=== PATIENT | female | born 1955 | race Caucasian/White ===

== ENCOUNTER → 2018-03-02 | Outpatient (CLI) | payer BC | LOC: MC.RAD 07:38 | DX: Z12.31 Encounter for screening mammogram for malignant neoplasm of breast (principal) ==

== ENCOUNTER 2021-02-20 15:32 | Observation (INO) | payer BC ==
[~2021-02-20] VITALS: Ht 170.2 cm; Wt 63.6 kg
[2021-02-20 16:36] LABS: BASO % 0.7 % (0.0-2.0); GRAN # 3.6 (1.4-6.5); GRAN % 80.1 % (42.2-75.2); HEMATOCRIT 37.9 % (37.0-47.0); HEMOGLOBIN 13.1 g/dl (12.5-16.0); LYMPH # 0.4 (1.2-3.4); LYMPH % 9.2 % (20.0-51.0); MEAN CELL VOLUME 102 fl (80.0-100.0); MEAN CORPUSCULAR HEMOGLOBIN 35 pg (27.0-31.0); MEAN CORPUSCULAR HGB CONC 35 g/dl (33.0-37.0); MEAN PLATELET VOLUME 12.7 fl (7.4-10.4); MONO # 0.4 (0.1-0.6); MONO % 9.6 % (1.7-9.3); RED BLOOD COUNT 3.73 M/mm3 (4.10-5.30); REDCELL DISTRIBUTION WIDTH-CV 15.4 % (11.5-14.5)
[2021-02-20 16:43] LABS: INR 1.9 (0.8-3.0); PROTHROMBIN TIME 21.7 SECONDS (9.7-12.8)
[2021-02-20 16:46] LABS: ALBUMIN 3.3 gm/dL (3.5-5.0); BILIRUBIN,TOTAL 5.3 mg/dL (0.0-1.0); CALCIUM 7.8 mg/dL (8.4-10.2); CREATININE, serum 0.31 (0.52-1.25); POTASSIUM 3.4 mmol/L (3.4-5.0); TOTAL PROTEIN 7.6 gm/dL (6.4-8.2)
[2021-02-20 17:19] LABS: PLATELET COUNT 37 K/mm3 (130-400)
[2021-02-20] MEDS ORDERED: SOOLANTRA TOP (17:24)
[2021-02-20] MEDS ORDERED: K-DUR20 MEQ PO (17:25)
[2021-02-20] MEDS ORDERED: CEPHALEXIN500 M1 PO (17:33)
[2021-02-21] VITALS (7 sets, daily range): BP systolic 115–138; BP diastolic 63–87; PULSE 100–111; TEMP 98.2–99.5
--- NOTE | 2021-02-21 02:54 | NUR ---
Patient arrived medical floor room 357 from ER around 23:30 pm. Patient A/Ox4. Patient reports lots of pressure to her abdomen. Abdomen firm and distended. Patient denies N/V or diarrhea at this time. Denies chest pain or SOB. Patient reports she feels nauseous on and off at home. Right lower leg has +2 pitting edema. Oriented patient to the room. Meds given per AUG. Call light in reach. Will continue to monitor.
[2021-02-21] MEDS ORDERED: DOXYCYCLINE 10100 MG PO (04:15)
[2021-02-21 07:24] LABS: EOS % 0.3 % (0-4.0); GRAN # 2.6 (1.4-6.5); GRAN % 64.9 % (42.2-75.2); HEMOGLOBIN 12.9 g/dl (12.5-16.0); LYMPH # 0.8 (1.2-3.4); LYMPH % 20.9 % (20.0-51.0); MEAN CELL VOLUME 100 fl (80.0-100.0); MEAN CORPUSCULAR HEMOGLOBIN 36 pg (27.0-31.0); MEAN CORPUSCULAR HGB CONC 36 g/dl (33.0-37.0); MEAN PLATELET VOLUME 13.8 fl (7.4-10.4); MONO # 0.5 (0.1-0.6); MONO % 12.6 % (1.7-9.3); RED BLOOD COUNT 3.61 M/mm3 (4.10-5.30); REDCELL DISTRIBUTION WIDTH-CV 14.7 % (11.5-14.5)
[2021-02-21 07:27] LABS: HEMATOCRIT 36.2 % (37.0-47.0)
[2021-02-21 07:30] LABS: PLATELET COUNT 34 K/mm3 (130-400)
--- NOTE | 2021-02-21 07:30 | NUR ---
Report with ISRAEL Rodríguez. Pt up and in the bathroom at this time, denies needs. Call light in reach.
[2021-02-21 07:48] LABS: ALBUMIN 2.8 gm/dL (3.5-5.0); BILIRUBIN,TOTAL 5.3 mg/dL (0.0-1.0); CALCIUM 7.8 mg/dL (8.4-10.2); CREATININE, serum 0.27 (0.52-1.25); POTASSIUM 3.4 mmol/L (3.4-5.0)
--- NOTE | 2021-02-21 08:50 | NUR ---
Assessment complete. Pt resting in bed, A&O x 4, reports pain/pressure to upper abd 5 out of 10 on pain scale. Saline lock IV to left forearm without s/s of complications. Abd distended and firm. POC for procedure reviewed with pt and she verbalizes understanding. Pt reports having a couple loose stools with some blood tinge. Provider notified. No further needs reported. Call light in reach.
--- NOTE | 2021-02-21 09:00 | NUR ---
Pt to US for procedure via WC.
--- NOTE | 2021-02-21 10:30 | NUR ---
Pt back to room following procedure, A&O x 4, denies c/o or needs. Call light in reach.
--- NOTE | 2021-02-21 11:30 | NUR ---
SW met with the patient to discuss discharge plan. The patient lives in [place] with her , Italo ([id number]#[phone]). She reports independence with ADLs and has a cane available, if needed. The patient's PCP is Dr. Krsitie King and she receives her medications from [facility]. She reports no difficulties obtaining her meds. The patient does not have a DPOA-HC in EMR, but she states that she does have one completed and that it designates her . She states that the document is at home. The patient plans to return home with her upon discharge. The patient has a history of alcohol use. The patient states that she has three glasses a wine a night. She reports that this is something that she has done for awhile and she has no concerns about her alcohol use. No additional needs at this time. *Discharge plan: home with *
[2021-02-21 12:45] LABS: PERITONEAL -POLYMORPHONUCLEAR 7.7 % (0-25); PERITONEAL FLUID RBC 2000 /mm3 (0-0)
--- NOTE | 2021-02-21 18:45 | NUR ---
Report given to ISRAEL Walsh. Pt resting in bed, still slowly eating supper, denies needs at this time. Call light in reach.
--- NOTE | 2021-02-21 23:09 | NUR ---
PATIENT IS CALM IN BED.DENIES PAIN.SAFETY MEASURES IN PLACE.NO OTHER NEEDS AT THIS TIME.
[2021-02-22 01:15] VITALS: BP 108/77; PULSE 103; TEMP 98
[2021-02-22 04:36] VITALS: BP 115/73; PULSE 99; TEMP 98.2
--- NOTE | 2021-02-22 04:58 | NUR ---
PATIENT HAD UNEVENTFUL NIGHT.SAFETY MEASURES IN PLACE.NO OTHER NEEDS AT THIS TIME.
[2021-02-22 05:24] VITALS: BP 110/72; PULSE 99; TEMP 98.2
[2021-02-22 06:37] LABS: INR 2.2 (0.8-3.0); PROTHROMBIN TIME 24.8 SECONDS (9.7-12.8)
[2021-02-22 06:41] LABS: BASO % 0.5 % (0.0-2.0); EOS # 0.1 (0.0-0.7); GRAN # 2.4 (1.4-6.5); GRAN % 58.5 % (42.2-75.2); HEMOGLOBIN 12.3 g/dl (12.5-16.0); LYMPH % 23.2 % (20.0-51.0); MEAN CELL VOLUME 102 fl (80.0-100.0); MEAN CORPUSCULAR HEMOGLOBIN 36 pg (27.0-31.0); MEAN CORPUSCULAR HGB CONC 35 g/dl (33.0-37.0); MEAN PLATELET VOLUME 13.7 fl (7.4-10.4); MONO # 0.6 (0.1-0.6); MONO % 15.6 % (1.7-9.3); RED BLOOD COUNT 3.45 M/mm3 (4.10-5.30); REDCELL DISTRIBUTION WIDTH-CV 14.7 % (11.5-14.5)
[2021-02-22 06:42] LABS: HEMATOCRIT 35.2 % (37.0-47.0)
[2021-02-22 06:44] LABS: PLATELET COUNT 33 K/mm3 (130-400)
[2021-02-22 06:47] LABS: ALBUMIN 2.8 gm/dL (3.5-5.0); BILIRUBIN,TOTAL 6.1 mg/dL (0.0-1.0); CALCIUM 7.9 mg/dL (8.4-10.2); CREATININE, serum 0.32 (0.52-1.25); POTASSIUM 3.3 mmol/L (3.4-5.0); TOTAL PROTEIN 6.8 gm/dL (6.4-8.2)
[2021-02-22 08:42] VITALS: BP 118/71; PULSE 113; TEMP 98
[2021-02-22] MEDS ORDERED: ALDACTONE 25MG25 M1 PO (08:44)
[2021-02-22] MEDS ORDERED: LASIX 40MG TABL40 MG PO (08:44)
[2021-02-22] MEDS ORDERED: FOLIC ACID 11 MG/TA1 PO (08:45)
[2021-02-22] MEDS ORDERED: THIAMINE 1100 MG/TAB PO (08:45)
[2021-02-22] MEDS ORDERED: COMPLETE MULTI1 TAB PO (08:46)
--- NOTE | 2021-02-22 09:28 | NUR ---
PT. ASSESSMENT COMPLETE. A&Ox4, NO C/O PAIN AT THIS TIME. AMB INDEPENDENTLY. VENOUS DOPPLER O BE COMPPLETED IN HOSPITAL THIS MORNING. JAUNDICE OF EYES NOTED. PT COMPLI[facility]
--- NOTE | 2021-02-22 11:19 | NUR ---
PT IS READY FOR DISCHARGE. MAGNESIUM WAS RUNNING WHEN IV BEGAN TO LEAK WITH 20ML LEFT IN THE BAG. PT IV REMOVED, NO IV RESTARTED.
--- NOTE | 2021-02-22 12:42 | NUR ---
Initial visit; Patient thanked [employer] for stopping in before she was to be discharged. [employer] offered God's blessing and wished Lisseth good health.
--- NOTE | 2021-02-22 14:00 | NUR ---
Primary nurse was assisted with [phone] patient care by [employer] student Rosa Zazueta and [employer] instructor MSN, RN
== END 2021-02-22 11:50 | disposition home or self-care (01) ==
LOC: COL.ER 15:32 → MEDICAL 21:03
PROVIDERS: Internal Medicine Gastroenterology; Physician Assistant; Student in an Organized Health Care Education/Training Program; ADMIT Student in an Organized Health Care Education/Training Program
DX: K74.60 Unspecified cirrhosis of liver (principal); R18.8 Other ascites; F10.10 Alcohol abuse, uncomplicated; D69.6 Thrombocytopenia, unspecified; R60.0 Localized edema; E87.6 Hypokalemia; E83.42 Hypomagnesemia; L71.9 Rosacea, unspecified; M79.661 Pain in right lower leg; Z85.828 Personal history of other malignant neoplasm of skin; Z79.899 Other long term (current) drug therapy
CPT/HCPCS: 99232-AI; 99239; G0378; J0696; J3475

== ENCOUNTER 2022-01-29 18:17 | Emergency (ER) | payer OTHER ==
[~2022-01-29] VITALS: Ht 167.6 cm; Wt 54.5 kg
[~2022-01-29 18:17] MED LIST: ALDACTONE 25MG25 M1 PO; CEPHALEXIN500 M1 PO; COMPLETE MULTI1 TAB PO; DOXYCYCLINE 10100 MG PO; FOLIC ACID 11 MG/TA1 PO; K-DUR20 MEQ PO; LASIX 40MG TABL40 MG PO; SOOLANTRA TOP; THIAMINE 1100 MG/TAB PO
[2022-01-29 18:24] VITALS: TEMP 97.6
[2022-01-29 20:39] VITALS: BP 119/81; PULSE 77
== END 2022-01-29 20:39 | disposition home or self-care (01) ==
LOC: COL.ER 18:17
DX: S00.83XA Contusion of other part of head, initial encounter (principal); S10.93XA Contusion of unspecified part of neck, initial encounter; H93.13 Tinnitus, bilateral; V89.2XXA Person injured in unspecified motor-vehicle accident, traffic, initial encounter; Y92.410 Unspecified street and highway as the place of occurrence of the external cause